=== PATIENT | female | born 1950 | race Caucasian/White ===

== ENCOUNTER 2023-01-23 11:47 | Day surgery (SDC) | payer MEDICARE, OTHER ==
[~2023-01-23] VITALS: Ht 154.9 cm; Wt 93.6 kg
[~2023-01-23 11:47] MED LIST: ALBU18HF12 IH; BACL10TA PO; FLUT12AE3 IH; GABA-533 PO; HYDR-4061 PO; HYDR12.54 PO; LORA10TA7 PO; MELO-108 PO; METF-1211 PO; METO-408 PO; MONT-40 PO; OMEP20CA12 PO; ROSU5TAB PO; SODIUM CHLORIDE 0.9% 1,000 ML ONE
[2023-01-23] MEDS ORDERED: PRED-554 PO (12:48)
[2023-01-23] MEDS ORDERED: FLUT16SP NASAL (12:48)
[2023-01-23] MEDS ORDERED: DiphenhydrAMINE HCL 50 MG CAPSULE ONE (13:07)
[2023-01-23] MEDS ORDERED: DIAZEPAM 5 MG TABLET ONE (13:07)
[2023-01-23 13:16] LABS: GLUCOMETER DEV NAME(LOC) SDS.; GLUCOSE,POINT OF CARE 103 MG/DL (70-110)
[2023-01-23] MEDS ORDERED: DIAZEPAM 5 MG TABLET PO ONE (13:30)
[2023-01-23] MEDS ORDERED: DiphenhydrAMINE HCL 50 MG CAPSULE PO ONE (13:30)
[2023-01-23] MEDS ORDERED: SODIUM CHLORIDE 0.9% 1,000 ML IV ONE (13:30)
[2023-01-23] MEDS ORDERED: SODIUM BICARBONATE 50 MEQ/50 ML VIAL ONE (14:39)
[2023-01-23] MEDS ORDERED: HEPARIN SODIUM 1000 UNITS/NS 1,000 ML ONE (14:39)
[2023-01-23] MEDS ORDERED: IOHEXOL 300 MG/ML 100 ML VIAL ONE (14:39)
[2023-01-23] MEDS ORDERED: LIDOCAINE/PF 1% 30 ML VIAL ONE (14:39)
[2023-01-23] MEDS ORDERED: MIDAZOLAM HCL 2 MG/2 ML VIAL ONE (15:00)
[2023-01-23] MEDS ORDERED: FentaNYL CITRATE PF 100 MCG/2 ML VIAL ONE (15:00)
[2023-01-23] MEDS ORDERED: HEPARIN SODIUM 2,000 UNITS in HEPARIN SODIUM 1000 UNITS/NS 1,000 ML IARTER ONE (15:15)
[2023-01-23] MEDS ORDERED: LIDOCAINE 1% 30 ML/SOD BICARB 8.4% 4 ML SQ ONE (15:15)
[2023-01-23] MEDS ORDERED: IOHEXOL 300 MG/ML 100 ML VIAL ICOR ONE (15:15)
[2023-01-23] MEDS ORDERED: FentaNYL CITRATE PF 100 MCG/2 ML VIAL IVP ONE (15:15)
[2023-01-23] MEDS ORDERED: MIDAZOLAM HCL 2 MG/2 ML VIAL IVP ONE (15:15)
[2023-01-23 15:34] VITALS: BP 159/107
== END 2023-01-23 19:30 | disposition home or self-care (01) ==
LOC: CATHLAB 11:47
PROVIDERS: ATTEND Internal Medicine Interventional Cardiology
DX: R94.39 Abnormal result of other cardiovascular function study (principal); R07.89 Other chest pain; E11.9 Type 2 diabetes mellitus without complications; E78.5 Hyperlipidemia, unspecified; E78.00 Pure hypercholesterolemia, unspecified; M19.90 Unspecified osteoarthritis, unspecified site; M06.9 Rheumatoid arthritis, unspecified; Z79.82 Long term (current) use of aspirin; Z90.49 Acquired absence of other specified parts of digestive tract; Z98.890 Other specified postprocedural states; Z88.8 Allergy status to other drugs, medicaments and biological substances
CPT/HCPCS: 93458; 82962; 99152; 93005; C1760; J3010; J1644; J3490 ×2; J2250; J7030; Q9967